=== PATIENT | male | born 1955 | race Caucasian/White ===

== ENCOUNTER 2019-04-25 16:26 | Inpatient (IN) | payer OTHER ==
[~2019-04-25] VITALS: Ht 172.7 cm; Wt 74.8 kg
[2019-04-25 16:29] VITALS: Ht 172.7 cm; Wt 74.8 kg
[2019-04-25 17:55] LABS: CALCIUM 7.9 mg/dL (8.5-10.1); CREATININE SERUM 1.5 mg/dL (0.7-1.3); POTASSIUM SERUM 3.5 mmol/L (3.5-5.1)
[2019-04-25 17:59] LABS: BASOPHIL % 0.2 % (0-2); PLATELET COUNT 206 x10^3mcL (130-400)
[2019-04-25 18:08] LABS: RED CELL DISTRIBUTION WIDTH 18.4 % (11.5-14.5)
[2019-04-25 18:10] LABS: BILIRUBIN TOTAL 0.38 mg/dL (0.20-1.00); T4(THYROXINE) 6.4 ug/dL (4.7-13.3); TOTAL PROTEIN, SERUM 6.2 g/dL (6.4-8.2)
[2019-04-25 18:11] LABS: ALBUMIN 2.8 g/dL (3.4-5.0)
[2019-04-25] MEDS ORDERED: GOOD SENSE OMEP20 MG (21:56)
[2019-04-25] MEDS ORDERED: NEURONTIN100 MG (21:56)
[2019-04-25] MEDS ORDERED: ATENOLOL25 MG (21:56)
[2019-04-25] MEDS ORDERED: ZESTRIL20 MG (21:56)
[2019-04-25] MEDS ORDERED: TOR30I (21:56)
[2019-04-26 03:08] VITALS: BP 119/84
[2019-04-26 05:54] VITALS: BP 109/71
[2019-04-26 06:34] LABS: BASOPHIL % 0.2 % (0-2); PLATELET COUNT 179 x10^3mcL (130-400)
[2019-04-26 06:36] LABS: RED CELL DISTRIBUTION WIDTH 18.9 % (11.5-14.5)
[2019-04-26 07:05] LABS: T3 TOTAL 0.84 ng/mL
[2019-04-26 07:06] LABS: BILIRUBIN DIRECT 0.11 mg/dL (0.0-0.2); BILIRUBIN TOTAL 0.4 mg/dL (0.20-1.00); CALCIUM 7.5 mg/dL (8.5-10.1); CREATININE SERUM 2.1 mg/dL (0.7-1.3); MAGNESIUM 1.4 mg/dL (1.8-2.4); PHOSPHOROUS 4.4 mg/dL (2.5-4.9); POTASSIUM SERUM 3.5 mmol/L (3.5-5.1)
[2019-04-26 07:07] LABS: ALBUMIN 2.5 g/dL (3.4-5.0); TOTAL PROTEIN, SERUM 5.7 g/dL (6.4-8.2)
[2019-04-26 07:24] LABS: FREE T4 0.94 ng/dL (0.76-1.46)
[2019-04-26 07:28] LABS: FREE THYROXINE INDEX 1.7 ug/dL (1.4-4.5); T4(THYROXINE) 4.2 ug/dL (4.7-13.3)
[2019-04-26 08:30] LABS: microscopic required? NO
[2019-04-26 08:43] LABS: AMPHETAMINE QUAL UR NONE DETECTED (See below)
[2019-04-26 08:44] LABS: urine erythrocyte NEGATIVE (NEGATIVE)
[2019-04-26 08:53] VITALS: BP 91/56
[2019-04-26 12:33] VITALS: BP 132/86
[2019-04-26 17:39] VITALS: BP 120/77
[2019-04-26 22:05] VITALS: BP 111/69
[2019-04-27 06:27] LABS: BASOPHIL % 0.6 % (0-2); PLATELET COUNT 192 x10^3mcL (130-400)
[2019-04-27 06:42] LABS: CARBON DIOXIDE 30.5 mmol/L (21-32); CREATININE SERUM 1.6 mg/dL (0.7-1.3); POTASSIUM SERUM 3.8 mmol/L (3.5-5.1)
[2019-04-27 06:46] LABS: RED CELL DISTRIBUTION WIDTH 18.7 % (11.5-14.5)
[2019-04-27] MEDS ORDERED: LEVAQUIN750 MG PO (09:20)
[2019-04-27 10:01] VITALS: BP 136/87
[2019-04-27 12:12] VITALS: BP 148/90
[2019-04-27 17:01] VITALS: BP 150/96
[2019-04-28 05:19] VITALS: BP 181/105
[2019-04-28 06:35] VITALS: BP 172/102
[2019-04-28 06:45] LABS: BASOPHIL % 0.6 % (0-2); PLATELET COUNT 195 x10^3mcL (130-400)
[2019-04-28 06:54] LABS: CALCIUM 8.3 mg/dL (8.5-10.1); CARBON DIOXIDE 31.1 mmol/L (21-32); CHLORIDE SERUM 105 mmol/L (98-107); CREATININE SERUM 1.1 mg/dL (0.7-1.3); GFR1 > 60 mL/min; GLUCOSE SERUM 109 mg/dL (74-106); POTASSIUM SERUM 3.8 mmol/L (3.5-5.1); SODIUM SERUM 142 mmol/L (136-145)
[2019-04-28 08:09] LABS: RED CELL DISTRIBUTION WIDTH 18.7 % (11.5-14.5)
[2019-04-28 08:24] VITALS: BP 141/95
[2019-04-28 09:23] VITALS: BP 141/95
== END 2019-04-28 18:45 | disposition home or self-care (01) | DRG 100 ==
LOC: ED 16:26 → DU 23:16 → MU 04-27 12:11
PROVIDERS: Emergency Medicine; Internal Medicine; ADMIT Internal Medicine
DX: R56.9 Unspecified convulsions (principal); N17.0 Acute kidney failure with tubular necrosis; J18.9 Pneumonia, unspecified organism; G93.41 Metabolic encephalopathy; F10.239 Alcohol dependence with withdrawal, unspecified; I12.0 Hypertensive chronic kidney disease with stage 5 chronic kidney disease or end stage renal disease; E83.51 Hypocalcemia; I48.91 Unspecified atrial fibrillation; I12.9 Hypertensive chronic kidney disease with stage 1 through stage 4 chronic kidney disease, or unspecified chronic kidney disease; N18.9 Chronic kidney disease, unspecified; D64.9 Anemia, unspecified; M54.5 Low back pain; G89.29 Other chronic pain; I25.2 Old myocardial infarction; Z68.25 Body mass index [BMI] 25.0-25.9, adult; Z85.528 Personal history of other malignant neoplasm of kidney; Z90.5 Acquired absence of kidney
CPT/HCPCS: 82962; 84439; 90658; 90732; 92526-GN; 92610-GN; G0378; G0480; J1644; J1885; J2060; J2405; J3475